=== PATIENT | male | born 1985 | race African-American/Black ===

== ENCOUNTER 2016-10-29 14:21 | Emergency (ER) | payer OTHER ==
[2016-10-29 14:33] VITALS: BP 125/93; PULSE 90; RESP 20; TEMP 98.7
--- NOTE | 2016-10-29 14:50 | ED ---
Skin/Abscess/FB HPI - General Chief complaint: Skin/Abscess/Foreign Body Stated complaint: Boil on leg Time Seen by Provider: 10/29/16 14:29 Source: patient, RN notes reviewed Mode of arrival: ambulatory Limitations: no limitations - History of Present Illness Initial comments: 31-year-old male presents to the emergency department with a chief complaint of abscess to his perineum area. Noticed it yesterday. History of MRSA. He states he was hoping that he could have a drain. Patient states that this time. Patient states there is minimal pain only to punch. Patient denies any fever chills cough or runny nose. Patient states he chronically does have a rash. 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 Patient states for the itching and to follow-up with dermatology. Patient denies any other symptoms at this time. Patient denies any recent fever, chills, shortness of breath, chest pain, back pain, abdominal pain, nausea vomiting, numbness or tingling, dysuria or hematuria, constipation or diarrhea, headaches or visual changes, or any other current symptoms. - Related Data Previous Rx's Medication Instructions Recorded Sulfamethox-Tmp 800-160Mg [Bactrim 2 each PO Q12HR #56 tab 10/29/16 DS 800-160 mg] hydrOXYzine HCL [Atarax] 25 mg PO TID PRN #25 tab 10/29/16 Allergies Allergy/AdvReac Type Severity Reaction Status Date / Time No Known Allergies Allergy Verified 10/29/16 14:29 Review of Systems ROS Statement: Those systems with pertinent positive or pertinent negative responses have been documented in the HPI. ROS Other: All systems not noted in ROS Statement are negative. Past Medical History Past Medical History: No Reported History History of Any Multi-Drug Resistant Organisms: MRSA Date of last positivie culture/infection: 12/10/2014 MDRO Source:: Left leg Past Surgical History: No Surgical Hx Reported Past Psychological History: No Psychological Hx Reported Smoking Status: Current every day smoker Past Alcohol Use History: Occasional Past Drug Use History: Marijuana General Exam Limitations: no limitations General appearance: alert, in no apparent distress Head exam: Present: atraumatic, normocephalic, normal inspection ENT exam: Present: normal exam, mucous membranes moist Neck exam: Present: normal inspection. Absent: tenderness, meningismus, lymphadenopathy Respiratory exam: Present: normal lung sounds bilaterally. Absent: respiratory distress, wheezes, rales, rhonchi, stridor Cardiovascular Exam: Present: regular rate, normal rhythm, normal heart sounds. Absent: systolic murmur, diastolic murmur, rubs, gallop, clicks Neurological exam: Present: alert, oriented X3 Psychiatric exam: Present: normal affect, normal mood Skin exam: Present: warm, dry, intact, rash (Diffuse) Course Vital Signs 10/29/16 14:30 Temperature 98.7 F Pulse Rate 90 Respiratory 20 Rate Blood Pressure 125/93 O2 Sat by Pulse 99 Oximetry Medical Decision Making - Medical Decision Making 31-year-old male presents to the emergency department with complaint of an abscess. This time he did undergo I&D with an 18-gauge needle. We did discuss taking the antibiotics as prescribed. We discussed follow-up with dermatology and return parameters. he will be discharged home. We discussed follow-up with dermatology for his continued rash and care. We'll plan on an antiitch medication. Disposition Clinical Impression: Chronic pruritic rash in adult, Abscess, perineum Disposition: HOME SELF-CARE Condition: Stable Instructions: Abscess (ED) Additional Instructions: Please use medication as discussed. Please follow up with family doctor if symptoms have not improved over the next two days. Please return to the emergency room if your symptoms increase or worsen or for any other concerns. Prescriptions: Sulfamethox-Tmp 800-160Mg [Bactrim DS 800-160 mg] 2 each PO Q12HR #56 tab hydrOXYzine HCL [Atarax] 25 mg PO TID PRN #25 tab PRN Reason: Itching Referrals: Manjeet Yeung MD [STAFF PHYSICIAN] - 1-2 days Time of Disposition: 14:49
== END 2016-10-29 15:01 | disposition home or self-care (01) ==
LOC: EC 14:21
DX: L02.215 Cutaneous abscess of perineum (principal); L29.9 Pruritus, unspecified; F17.200 Nicotine dependence, unspecified, uncomplicated
CPT/HCPCS: 10060; 99282

== ENCOUNTER 2016-11-30 17:02 | Emergency (ER) | payer OTHER ==
[2016-11-30 17:16] VITALS: BP 124/69; PULSE 92; RESP 18; TEMP 97.6
--- NOTE | 2016-11-30 17:30 | ED ---
General Adult HPI - General Chief complaint: Recheck/Abnormal Lab/Rx Stated complaint: Diff breathing Time Seen by Provider: 11/30/16 17:25 Source: patient, RN notes reviewed Mode of arrival: ambulatory Limitations: no limitations - History of Present Illness Initial comments: 31-year-old male presents emergency Department chief complaint heartburn, occasional difficulty swallowing. Patient states that he feels that food does not always go down right away gets stuck just below his ribs. In states that he seems To force it down or drink something extra. Patient states is very is and does not happen all the time. He states that any food or drinks and causes. Patient denies any nausea vomiting. Patient states he did try some Tums 1 tablet no relief. He has not tried any other medications. He does admit to ongoing acid reflux. Denies any shortness breath that time. Denies any sore throat, fever, chills, diarrhea constipation. - Related Data Previous Rx's Medication Instructions Recorded Sulfamethox-Tmp 800-160Mg [Bactrim 2 each PO Q12HR #56 tab 10/29/16 DS 800-160 mg] hydrOXYzine HCL [Atarax] 25 mg PO TID PRN #25 tab 10/29/16 Omeprazole 40 mg PO DAILY #14 capsule. 11/30/16 Allergies Allergy/AdvReac Type Severity Reaction Status Date / Time No Known Allergies Allergy Verified 11/30/16 17:16 Review of Systems ROS Statement: Those systems with pertinent positive or pertinent negative responses have been documented in the HPI. ROS Other: All systems not noted in ROS Statement are negative. Past Medical History Past Medical History: No Reported History History of Any Multi-Drug Resistant Organisms: MRSA Date of last positivie culture/infection: 12/10/2014 MDRO Source:: Left leg Past Surgical History: No Surgical Hx Reported Past Psychological History: No Psychological Hx Reported Smoking Status: Current every day smoker Past Alcohol Use History: Occasional Past Drug Use History: Marijuana General Exam Limitations: no limitations General appearance: alert, in no apparent distress ENT exam: Present: normal exam, normal oropharynx, mucous membranes moist Neck exam: Present: normal inspection. Absent: tenderness, meningismus, lymphadenopathy Respiratory exam: Present: normal lung sounds bilaterally. Absent: respiratory distress, wheezes, rales, rhonchi, stridor Cardiovascular Exam: Present: regular rate, normal rhythm, normal heart sounds. Absent: systolic murmur, diastolic murmur, rubs, gallop, clicks GI/Abdominal exam: Present: soft, tenderness (Minimal tenderness in the epigastric region just inferior to the xiphoid process), normal bowel sounds. Absent: distended, guarding, rebound, rigid Course Vital Signs 11/30/16 17:10 Temperature 97.6 F Pulse Rate 92 Respiratory 18 Rate Blood Pressure 124/69 O2 Sat by Pulse 97 Oximetry Medical Decision Making - Medical Decision Making 31-year-old male presented emergency department for difficulty swallowing, GERD. Patient most likely has esophagitis with acid reflux. Patient was started on omeprazole 40 mg once daily. He'll be placed on a 2 week trial if no improvement I did recommend that he has an EGD. Patient agrees to plan of this time I do not see any evidence of a large hiatal hernia on chest x-ray Disposition Clinical Impression: Esophagitis, GERD (gastroesophageal reflux disease) Disposition: HOME SELF-CARE Condition: Stable Instructions: Gastroesophageal Reflux Disease (ED) Additional Instructions: Please return to the Emergency Department if symptoms worsen or any other concerns. Prescriptions: Omeprazole 40 mg PO DAILY #14 capsule.dr Referrals: None,Stated [Primary Care Provider] - 1-2 days Suzette Atkins MD [STAFF PHYSICIAN] - 1-2 days Time of Disposition: 17:42
--- NOTE | 2016-11-30 17:37 | XR ---
EXAMINATION TYPE: XR chest 2V DATE OF EXAM: 11/30/2016 COMPARISON: NONE HISTORY: Chest pain TECHNIQUE: Frontal and lateral views of the chest are obtained. FINDINGS: Heart and mediastinum are normal. Lungs are clear. Diaphragm is normal. Bony thorax is int act. There are tiny calcified granulomata. IMPRESSION: No cardiopulmonary disease.
== END 2016-11-30 18:12 | disposition home or self-care (01) ==
LOC: EC 17:02
DX: K21.0 Gastro-esophageal reflux disease with esophagitis (principal); R06.00 Dyspnea, unspecified; F17.200 Nicotine dependence, unspecified, uncomplicated
CPT/HCPCS: 71020; 99284

== ENCOUNTER 2017-03-02 12:52 | Observation (INO) | payer OTHER ==
[2017-03-02] MEDS ORDERED: FAMOTIDINE 20 MG/2 ML VIAL IV STA (14:02)
[2017-03-02] MEDS ORDERED: diphenhydrAMINE 50 MG/ML 1 ML VIAL IVP STA (14:02)
[2017-03-02] MEDS ORDERED: methylPREDNISolone SOD SUCCI 125 MG/2 ML VIAL IV STA (14:02)
[2017-03-02] MEDS ORDERED: ONDANSETRON 4 MG/2 ML VIAL IVP STA (14:11)
[2017-03-02] MEDS ORDERED: SODIUM CHLORIDE 0.9% 2,000 ML IV STA (14:11)
[2017-03-02] MEDS ORDERED: MORPHINE SULFATE 4 MG/ML SYRINGE IV STA (14:11)
[2017-03-02] MEDS ORDERED: RX INFO: IV CONTRAST WAS GIVEN 1 EACH MISC MISCELLANE PRN (14:11)
--- NOTE | 2017-03-02 14:17 | ED ---
GI Bleed HPI <Lakhwinder Jimenez - Last Filed: 03/02/17 15:48> - General Source: patient, RN notes reviewed, old records reviewed Mode of arrival: ambulatory Limitations: no limitations <Jenna Patiñoily - Last Filed: 03/02/17 16:00> - General Chief complaint: GI Bleed Stated complaint: Abd Pain/Blood in Stool Time Seen by Provider: 03/02/17 13:59 - History of Present Illness Initial comments: 31-year-old male since emergency Department chief complaint of severe abdominal pain for the past 2 days. He reports that today he had a bowel movement he noticed significant bloody stool. Patient states this is her had symptoms like this before. Denies any nausea or vomiting. Patient just reports diffuse abdominal pain. Patient states that he has had no fever or chills, denies any urinary symptoms. Reports the pain is just in the abdomen and radiating towards the back. Patient later relates that he was treated with Augmentin for some infection that he is unaware of a few weeks ago, and completed the antibiotics over to 3 weeks ago. (Miranda Patiño) - Related Data Home Medications Medication Instructions Recorded Confirmed Azithromycin [Zithromax] 600 mg PO Q7D 03/02/17 03/02/17 Ibuprofen [Motrin] 800 mg PO Q6H PRN 03/02/17 03/02/17 Allergies Allergy/AdvReac Type Severity Reaction Status Date / Time No Known Allergies Allergy Verified 03/02/17 13:23 Review of Systems ROS Other: All systems not noted in ROS Statement are negative. <Lakhwinder Jimenez - Last Filed: 03/02/17 15:48> ROS Other: All systems not noted in ROS Statement are negative. <Miranda Patiño - Last Filed: 03/02/17 16:00> ROS Statement: Those systems with pertinent positive or pertinent negative responses have been documented in the HPI. Past Medical History Past Medical History: No Reported History History of Any Multi-Drug Resistant Organisms: MRSA Date of last positivie culture/infection: 12/10/2014 MDRO Source:: Left leg Past Surgical History: No Surgical Hx Reported Past Psychological History: No Psychological Hx Reported Smoking Status: Current every day smoker Past Alcohol Use History: Occasional Past Drug Use History: Marijuana <Miranda Patiño - Last Filed: 03/02/17 16:00> General Exam <Lakhwinder Jimenez - Last Filed: 03/02/17 15:48> Limitations: no limitations General appearance: alert, in no apparent distress Head exam: Present: atraumatic, normocephalic, normal inspection Eye exam: Present: normal appearance, PERRL, EOMI. Absent: scleral icterus, conjunctival injection, periorbital swelling ENT exam: Present: normal exam, mucous membranes moist Neck exam: Present: normal inspection. Absent: tenderness, meningismus, lymphadenopathy Respiratory exam: Present: normal lung sounds bilaterally. Absent: respiratory distress, wheezes, rales, rhonchi, stridor Cardiovascular Exam: Present: regular rate, normal rhythm, normal heart sounds. Absent: systolic murmur, diastolic murmur, rubs, gallop, clicks GI/Abdominal exam: Present: soft, tenderness (Diffuseabdominal tenderness.) Rectal exam: Present: normal rectal tone, bloody stool, hemorrhoids (Patient does appear to have some external hemorrhoid.) Extremities exam: Present: normal inspection, full ROM, normal capillary refill. Absent: tenderness, pedal edema, joint swelling, calf tenderness Back exam: Present: normal inspection Neurological exam: Present: alert, oriented X3, CN II-XII intact Psychiatric exam: Present: normal affect, normal mood Skin exam: Present: warm, dry, intact, normal color. Absent: rash <Miranda Patiño - Last Filed: 03/02/17 16:00> - General Exam Comments Initial Comments: 31-year-old -[place] male. No acute distress. (Miranda Patiño) Course <Lakhwinder Jimenez - Last Filed: 03/02/17 15:48> <Miranda Patiño - Last Filed: 03/02/17 16:00> Vital Signs 03/02/17 03/02/17 13:04 14:37 Temperature 97.8 F Pulse Rate 109 H 81 Respiratory 16 22 Rate Blood Pressure 130/82 126/72 O2 Sat by Pulse 100 98 Oximetry - Reevaluation(s) Reevaluation #1: 03/02/17 15:48 I did proceed a [id number] evaluation the patient did discuss the findings with him and his . Due to the patient's presentation she will be admitted for evaluation of GI bleeding colitis and serial CBCs. The case was discussed with Dr. Spence. (Lakhwinder Jimenez) Medical Decision Making - Lab Data Result diagrams: 03/02/17 13:25 03/02/17 13:25 <Lakhwinder Jimenez - Last Filed: 03/02/17 15:48> - Lab Data Result diagrams: 03/02/17 13:25 03/02/17 13:25 - Radiology Data Radiology results: report reviewed <HaroonMiranda - Last Filed: 03/02/17 16:00> - Medical Decision Making This is a 31-year-old male presents emergency department with 2 days of some abdominal pain but 1 day of bloody stool. Patient was given IV fluids, pain medication and lab work obtained. Patient's lab work does show significant neutropenia with a white blood cell count of 1.9. Patient also started to have some low platelets at 95,000. Patient chemistries were all within normal limits. Patient's CT abdomen and pelvis was performed and did show some evidence of rectosigmoid colitis. Patient relates that he has never been told that he has had a low blood count before. Denies any previous illnesses. Discussed case with Dr. Jimenez. Like to admit the patient for further evaluation and repeat CBCs. Patient will be started on Levaquin and Flagyl for his colitis. Patient agrees to treatment plan and admission. Patient be on a clear liquid diet. Dr. Louis discussed this case with Dr. Spence. We will also consult GI specialist Dr. Hoffman. (Miranda Patiño) - Lab Data Lab Results 03/02/17 03/02/17 03/02/17 Range/Units 13:25 13:25 13:25 WBC 1.9 L* (3.8-10.6) k/uL RBC 4.12 L (4.30-5.90) m/uL Hgb 13.4 (13.0-17.5) gm/dL Hct 38.2 L (39.0-53.0) % MCV 92.8 (80.0-100.0) fL MCH 32.6 (25.0-35.0) pg MCHC 35.2 (31.0-37.0) g/dL RDW 13.7 (11.5-15.5) % Plt Count 95 L (150-450) k/uL Neutrophils % 73 % Lymphocytes % 11 % Monocytes % 13 % Eosinophils % 1 % Basophils % 1 % Neutrophils # 1.4 (1.3-7.7) k/uL Lymphocytes # 0.2 L (1.0-4.8) k/uL Monocytes # 0.2 (0-1.0) k/uL Eosinophils # 0.0 (0-0.7) k/uL Basophils # 0.0 (0-0.2) k/uL Manual Slide Review Performed Ovalocytes Present PT 10.2 (9.0-12.0) sec INR 1.0 (<1.2) APTT 24.6 (22.0-30.0) sec Sodium 145 (137-145) mmol/L Potassium 4.1 (3.5-5.1) mmol/L Chloride 107 (98-107) mmol/L Carbon Dioxide 25 (22-30) mmol/L Anion Gap 13 mmol/L BUN 9 (9-20) mg/dL Creatinine 0.74 (0.66-1.25) mg/dL Est GFR (MDRD) Af Amer >60 (>60 ml/min/1.73 sqM) Est GFR (MDRD) Non-Af >60 (>60 ml/min/1.73 sqM) Glucose 79 (74-99) mg/dL Plasma Lactic Acid Valente (0.7-2.0) mmol/L Calcium 9.8 (8.4-10.2) mg/dL Total Bilirubin 0.7 (0.2-1.3) mg/dL AST 24 (17-59) U/L ALT 32 (21-72) U/L Alkaline Phosphatase 50 (38-126) U/L Total Protein 9.3 H (6.3-8.2) g/dL Albumin 4.7 (3.5-5.0) g/dL Amylase 98 (30-110) U/L Lipase 58 (23-300) U/L Urine Color Urine Appearance (Clear) Urine pH (5.0-8.0) Ur Specific [place] (1.001-1.035) Urine Protein (Negative) Urine Glucose (UA) (Negative) Urine Ketones (Negative) Urine Blood (Negative) Urine Nitrite (Negative) Urine Bilirubin (Negative) Urine Urobilinogen (<2.0) mg/dL Ur Leukocyte Esterase (Negative) Stool Occult Blood (Negative) Blood Type Blood Type Recheck Antibody Screen Spec Expiration Date 03/02/17 03/02/17 03/02/17 Range/Units 13:25 14:12 15:34 WBC (3.8-10.6) k/uL RBC (4.30-5.90) m/uL Hgb (13.0-17.5) gm/dL Hct (39.0-53.0) % MCV (80.0-100.0) fL MCH (25.0-35.0) pg MCHC (31.0-37.0) g/dL RDW (11.5-15.5) % Plt Count (150-450) k/uL Neutrophils % % Lymphocytes % % Monocytes % % Eosinophils % % Basophils % % Neutrophils # (1.3-7.7) k/uL Lymphocytes # (1.0-4.8) k/uL Monocytes # (0-1.0) k/uL Eosinophils # (0-0.7) k/uL Basophils # (0-0.2) k/uL Manual Slide Review Ovalocytes PT (9.0-12.0) sec INR (<1.2) APTT (22.0-30.0) sec Sodium (137-145) mmol/L Potassium (3.5-5.1) mmol/L Chloride (98-107) mmol/L Carbon Dioxide (22-30) mmol/L Anion Gap mmol/L BUN (9-20) mg/dL Creatinine (0.66-1.25) mg/dL Est GFR (MDRD) Af Amer (>60 ml/min/1.73 sqM) Est GFR (MDRD) Non-Af (>60 ml/min/1.73 sqM) Glucose (74-99) mg/dL Plasma Lactic Acid Valente 0.8 (0.7-2.0) mmol/L Calcium (8.4-10.2) mg/dL Total Bilirubin (0.2-1.3) mg/dL AST (17-59) U/L ALT (21-72) U/L Alkaline Phosphatase (38-126) U/L Total Protein (6.3-8.2) g/dL Albumin (3.5-5.0) g/dL Amylase (30-110) U/L Lipase (23-300) U/L Urine Color Light Yellow Urine Appearance Clear (Clear) Urine pH 6.5 (5.0-8.0) Ur Specific [place] 1.021 (1.001-1.035) Urine Protein Negative (Negative) Urine Glucose (UA) Negative (Negative) Urine Ketones Negative (Negative) Urine Blood Negative (Negative) Urine Nitrite Negative (Negative) Urine Bilirubin Negative (Negative) Urine Urobilinogen <2.0 (<2.0) mg/dL Ur Leukocyte Esterase Negative (Negative) Stool Occult Blood (Negative) Blood Type O Negative Blood Type Recheck No Antibody Screen NEGATIVE Spec Expiration Date 03/05/2017232403/02/17 Range/Units 15:34 WBC (3.8-10.6) k/uL RBC (4.30-5.90) m/uL Hgb (13.0-17.5) gm/dL Hct (39.0-53.0) % MCV (80.0-100.0) fL MCH (25.0-35.0) pg MCHC (31.0-37.0) g/dL RDW (11.5-15.5) % Plt Count (150-450) k/uL Neutrophils % % Lymphocytes % % Monocytes % % Eosinophils % % Basophils % % Neutrophils # (1.3-7.7) k/uL Lymphocytes # (1.0-4.8) k/uL Monocytes # (0-1.0) k/uL Eosinophils # (0-0.7) k/uL Basophils # (0-0.2) k/uL Manual Slide Review Ovalocytes PT (9.0-12.0) sec INR (<1.2) APTT (22.0-30.0) sec Sodium (137-145) mmol/L Potassium (3.5-5.1) mmol/L Chloride (98-107) mmol/L Carbon Dioxide (22-30) mmol/L Anion Gap mmol/L BUN (9-20) mg/dL Creatinine (0.66-1.25) mg/dL Est GFR (MDRD) Af Amer (>60 ml/min/1.73 sqM) Est GFR (MDRD) Non-Af (>60 ml/min/1.73 sqM) Glucose (74-99) mg/dL Plasma Lactic Acid Valente (0.7-2.0) mmol/L Calcium (8.4-10.2) mg/dL Total Bilirubin (0.2-1.3) mg/dL AST (17-59) U/L ALT (21-72) U/L Alkaline Phosphatase (38-126) U/L Total Protein (6.3-8.2) g/dL Albumin (3.5-5.0) g/dL Amylase (30-110) U/L Lipase (23-300) U/L Urine Color Urine Appearance (Clear) Urine pH (5.0-8.0) Ur Specific [place] (1.001-1.035) Urine Protein (Negative) Urine Glucose (UA) (Negative) Urine Ketones (Negative) Urine Blood (Negative) Urine Nitrite (Negative) Urine Bilirubin (Negative) Urine Urobilinogen (<2.0) mg/dL Ur Leukocyte Esterase (Negative) Stool Occult Blood Positive (Negative) Blood Type Blood Type Recheck Antibody Screen Spec Expiration Date - Radiology Data Correlate for possible colitis. Following up as indicated. Some wall thickening present in the rectosigmoid colon is nonspecific. No evidence of bowel instruction. (Miranda Patiño) Disposition <Lakhwinder Jimenez - Last Filed: 03/02/17 15:48> Time of Disposition: 15:49 <Miranda Patiño - Last Filed: 03/02/17 16:00> Clinical Impression: Colitis, Neutropenia, Lower GI bleed Disposition: ADMITTED IP TO THIS HOSP Condition: Stable Referrals: None,Stated [Primary Care Provider] - 1-2 days
[2017-03-02 14:34] LABS: Basophils % (A) 1 %; CH 33.1; CHCM 35.9; Eosinophils % (A) 1 %; HCT 38.2 % (39.0-53.0); HDW 3.07; HGB 13.4 gm/dL (13.0-17.5); Luc # (Auto) 0.03; Luc % (Auto) 2; Lymphocytes # (A) 0.2 k/uL (1.0-4.8); Lymphocytes % (A) 11 %; MCH 32.6 pg (25.0-35.0); MCHC 35.2 g/dL (31.0-37.0); MCV 92.8 fL (80.0-100.0); Mean Platelet Volume 8.7; Monocytes # (A) 0.2 k/uL (0-1.0); Monocytes % (A) 13 %; Neutrophils # (A) 1.4 k/uL (1.3-7.7); Neutrophils % (A) 73 %; RBC 4.12 m/uL (4.30-5.90); RDW 13.7 % (11.5-15.5); WBC (Perox) 1.73
[2017-03-02 14:43] LABS: ALT 32 U/L (21-72); AST 24 U/L (17-59); Alkaline Phosphatase 50 U/L (38-126); Amylase 98 U/L (30-110); Anion Gap 13 mmol/L; Blood Urea Nitrogen 9 mg/dL (9-20); Calcium 9.8 mg/dL (8.4-10.2); Carbon Dioxide 25 mmol/L (22-30); Chloride 107 mmol/L (98-107); Glucose 79 mg/dL (74-99); Non-African American GFR(MDRD) >60 (>60 ml/min/1.73 sqM); Partial Thromboplastin Time 24.6 sec (22.0-30.0); Potassium 4.1 mmol/L (3.5-5.1); Prothrombin Time 10.2 sec (9.0-12.0); Sodium 145 mmol/L (137-145); Total Bilirubin 0.7 mg/dL (0.2-1.3); Total Protein 9.3 g/dL (6.3-8.2); WBC 1.9 k/uL (3.8-10.6)
[2017-03-02 15:03] LABS: Manual Review Performed; Ovalocytes Present
--- NOTE | 2017-03-02 15:28 | CT ---
EXAMINATION TYPE: CT abdomen pelvis w con DATE OF EXAM: 03/02/2017 COMPARISON: NONE HISTORY: Generalized abdominal pain with rectal bleeding today. CT DLP: 509.40 mGycm Automated exposure control for dose reduction was used. TECHNIQUE: Helical acquisition of images from the lung bases through the pelvis have been completed. CONTRAST: Performed without Oral Contrast and with IV Contrast, patient injected with 100 mL of Omnipaque 300. FINDINGS: LUNG BASES: No significant abnormality is appreciated. AORTA: No significant abnormality is appreciated. LIVER/GB: No significant abnormality is appreciated. PANCREAS: No significant abnormality is seen. SPLEEN: No significant abnormality is seen. ADRENALS: No significant abnormality is seen. KIDNEYS: No significant abnormality is seen. REPRODUCTIVE ORGANS: There is a punctate calcification within the prostate BOWEL: Some wall thickening present in the rectosigmoid colon is nonspecific. No evident bowel obstr uction. FREE AIR: No Free Air visible. ASCITES: None visible. PELVIC ADENOPATHY: None visualized. RETROPERITONEAL ADENOPATHY: No Retroperitoneal Adenopathy visible. URINARY BLADDER: No significant abnormality is seen. OSSEOUS STRUCTURES: There is a spinal curvature. IMPRESSION: CORRELATE FOR POSSIBLE COLITIS, FOLLOW-UP INDICATED.
[2017-03-02 15:44] LABS: Appearance,Urine Clear (Clear); Bilirubin,Urine Negative (Negative); Glucose,Urine (UA) Negative (Negative); Ketones,Urine Negative (Negative); Leukocyte Esterase,Urine Negative (Negative); Nitrite,Urine Negative (Negative); PH, Urine 6.5 (5.0-8.0); Protein,Urine Negative (Negative); Specific Gravity,Urine 1.021 (1.001-1.035); UA Billing (MACRO vs. MICRO) CHEM; Urobilinogen,Urine <2.0 mg/dL (<2.0)
[2017-03-02] MEDS ORDERED: NALOXONE 0.4 MG/ML 1 ML VIAL IV PRN (15:49)
[2017-03-02] MEDS ORDERED: metroNIDAZOLE-NS PMX 500 MG in SALINE 1 100ML.BAG IVPB STA (15:57)
[2017-03-02] MEDS ORDERED: LEVOFLOXACIN 750MG-D5W PMX 750 MG in DEXTROSE/WATER 1 150ML.BAG IVPB STA (15:57)
[2017-03-02] MEDS: SODIUM CHLORIDE 0.9% 1,000 ML IV SCH (16:11)
[2017-03-02] MEDS ORDERED: metroNIDAZOLE 500 MG TAB PO ONE (16:15)
[2017-03-02 17:52] VITALS: BMI 22.4
[2017-03-02] MEDS: MORPHINE SULFATE 4 MG/ML SYRINGE IV PRN (18:11)
[2017-03-02] MEDS ORDERED: HYDROmorphone 1 MG/ML 1 ML SYRINGE IVP PRN (18:56)
[2017-03-02] MEDS ORDERED: TEMAZEPAM 15 MG CAP PO PRN (18:57)
[2017-03-02] MEDS ORDERED: ALPRAZolam 0.25 MG TAB PO PRN (18:57)
--- NOTE | 2017-03-02 19:24 | XR ---
EXAMINATION TYPE: XR chest 1V portable DATE OF EXAM: 03/02/2017 COMPARISON: Prior chest x-ray 11/30/2016 HISTORY: Congestive heart failure, chest pain TECHNIQUE: Single frontal view of the chest is obtained. FINDINGS: There is no focal air space opacity, pleural effusion, or pneumothorax seen. The cardiac silhouette size is within normal limits. The osseous structures are intact. IMPRESSION: No acute process.
[2017-03-02] MEDS: ONDANSETRON 4 MG/2 ML VIAL IVP PRN (20:00)
[2017-03-02] MEDS: HYDROcodone/APAP 5-325MG 1 EACH TAB PO PRN (20:00)
[2017-03-02] MEDS ORDERED: diphenhydrAMINE 50 MG/ML 1 ML VIAL IVP PRN (22:02)
[2017-03-02] MEDS ORDERED: diphenhydrAMINE 50 MG/ML 1 ML VIAL ONE (22:08)
[2017-03-03] MEDS ORDERED: metroNIDAZOLE-NS PMX 500 MG in SALINE 1 100ML.BAG IVPB SCH
[2017-03-03] MEDS: ACETAMINOPHEN TAB 325 MG TAB PO PRN (00:13)
[2017-03-03] MEDS: PIPERACILLIN-TAZOBACTAM 3.375 GM in DEXTROSE/WATER 1 50ML.BAG IVPB SCH ×3 (00:55→15:28)
[2017-03-03] MEDS ORDERED: metroNIDAZOLE 500 MG TAB PO SCH (02:00)
[2017-03-03] MEDS: MORPHINE SULFATE 4 MG/ML SYRINGE IV PRN ×3 (02:27→13:25)
[2017-03-03] MEDS: SODIUM CHLORIDE 0.9% 1,000 ML IV SCH ×3 (02:31→21:12)
[2017-03-03 06:52] LABS: Basophils % (A) 1 %; CH 32.8; CHCM 34.8; Eosinophils % (A) 3 %; HCT 30.2 % (39.0-53.0); HDW 3.06; HGB 10.8 gm/dL (13.0-17.5); Luc # (Auto) 0.04; Luc % (Auto) 4; Lymphocytes # (A) 0.3 k/uL (1.0-4.8); Lymphocytes % (A) 26 %; MCH 33.9 pg (25.0-35.0); MCHC 35.8 g/dL (31.0-37.0); MCV 94.7 fL (80.0-100.0); Mean Platelet Volume 8.7; Monocytes # (A) 0.3 k/uL (0-1.0); Monocytes % (A) 24 %; Neutrophils # (A) 0.4 k/uL (1.3-7.7); Neutrophils % (A) 42 %; RBC 3.19 m/uL (4.30-5.90); WBC (Perox) 1.06
[2017-03-03 07:04] LABS: WBC 1.1 k/uL (3.8-10.6)
[2017-03-03 07:16] LABS: Anion Gap 9 mmol/L; Blood Urea Nitrogen 8 mg/dL (9-20); Calcium 8.6 mg/dL (8.4-10.2); Carbon Dioxide 25 mmol/L (22-30); Chloride 109 mmol/L (98-107); Glucose 81 mg/dL (74-99); Non-African American GFR(MDRD) >60 (>60 ml/min/1.73 sqM); Potassium 3.9 mmol/L (3.5-5.1); Sodium 143 mmol/L (137-145)
[2017-03-03] MEDS: PANTOPRAZOLE 40 MG/10 ML VIAL IV SCH (08:08)
[2017-03-03 08:18] LABS: Manual Review Performed
--- NOTE | 2017-03-03 10:21 | HP ---
HISTORY AND PHYSICAL DATE OF ADMISSION: 03/02/2017. CHIEF COMPLAINT: Abdominal pain and gastrointestinal bleed. HISTORY OF PRESENT ILLNESS: This 31-year-old gentleman with a past medical history of MRSA, otherwise no other significant medical surgical issues was not being followed by any primary physician in the outpatient setting. The patient was noted to have abdominal pain which is stated more on the left lower quadrant than right upper quadrant. The patient also had some bloody stools and patient came to [facility] and admitted for further evaluation and treatment. The symptoms are worsening over the last 2 days. After admission, at the ER, patient was found to have WBC 1.9. Hemoglobin is found to be 13.4, platelets were 95 and stool OB was positive. An abdomen and pelvis CT scan was also done that showed evidence of possible colitis with wall thickening in the rectosigmoid and the patient admitted for further evaluation and treatment. There is no history of fever, rigors or chills. No history of headache, loss of conscious or seizures. PAST MEDICAL HISTORY: MRSA. MEDICATIONS: Prior to admission include: 1. Motrin 800 mg q.6h p.r.n. 2. Zithromax 600 mg every 7 days. ALLERGIES: None. FAMILY HISTORY: History of DVT in the family. SOCIAL HISTORY: History of THC and history of smoking. REVIEW OF SYSTEMS: ENT: No diminished hearing or vision. CARDIOVASCULAR: No angina or palpitations. RESPIRATORY: No cough. GI as mentioned earlier. no dysuria. Central nervous system: No numbness or weakness. Allergy/Immunology: No asthma or hayfever. Musculoskeletal: As mentioned earlier. Hematology/Oncology: No history of anemia. Endocrine: No history of diabetes or hypothyroidism. Constitutional: As mentioned earlier. Dermatology: Negative. Rheumatology: Negative. Psychiatric: As mentioned earlier. PHYSICAL EXAM: Patient is alert and oriented times three. The pulse is 74, blood pressure 130/68, respiration 18, temperature 98.9, pulse ox 98% room air. HEENT: Conjunctivae normal. Neck: No jugular venous distention. Cardiovascular: S1, S2 muffled. No S3, no S4. Respiratory: Breath sounds diminished in the bases. No rhonchi. No crackles. ABDOMEN: Soft. Mild diffuse tenderness in the left lower quadrant and right upper quadrant also present. No guarding. No rigidity. No mass palpable. Bowel sounds present. Legs no edema. No swelling. NERVOUS SYSTEM: Higher functions as mentioned earlier. Moves all four limbs. No focal deficits. Lymphatics: No lymph nodes palpable in the neck, axillae or groin. SKIN: No ulcers, rash or bleeding. Joints no active deforming arthropathy. LABS: WBC 1.9, and platelets 95. CT scan reviewed. ASSESSMENT: 1. Acute abdominal pain with gastrointestinal bleed. Possible acute colitis for evaluation. 2. Leukopenia, of undetermined etiology. 3. Thrombocytopenia. 4. History of nicotine dependence. 5. History of Methicillin-resistant Staphylococcus aureus. 6. History of THC. RECOMMENDATIONS AND DISCUSSION: In this 31-year-old gentleman who presented with multiple complex medical issues, we will monitor the patient closely. Continue the current medications. Continue symptomatic treatment. We will initiate broad-spectrum antibiotic empirically. Monitor hemoglobin closely. Gastroenterology evaluation for possible endoscopy. Otherwise, serologies. Guarded prognosis because of multiple complex medical issues. Further recommendations to follow. I would also recommend the patient to follow up with primary physician closely also. Further recommendations to follow. MMODL / IJN: [id number] /
[2017-03-03] MEDS: HYDROcodone/APAP 5-325MG 1 EACH TAB PO PRN (15:27)
[2017-03-03] MEDS ORDERED: LORazepam 2 MG/ML INJ IV PRN (18:41)
[2017-03-03] MEDS ORDERED: LEVOFLOXACIN 500MG-D5W PMX 500 MG in DEXTROSE/WATER 1 100ML.BAG IVPB SCH (20:00)
--- NOTE | 2017-03-03 21:28 | PN ---
PROGRESS NOTE DATE OF SERVICE: 03/03/2017 INTERVAL HISTORY: This 31-year-old gentleman who was admitted with abdominal pain as well as possibly colitis also had GI bleed. Patient also had leukopenia and pancytopenia and followed by oncology also. Gastroenterology has been consulted. No chest pain. No palpitations. No fever. EXAM: Alert, oriented x3. Pulse is 58. Blood pressure 114/77, respiration 18, temperature 97.4, pulse ox 100% on room air. HEENT conjunctivae pale. Oral mucosa moist. Neck is no jugular venous distention. No carotid bruit. No lymph node enlargement. Cardiovascular system: S1, S2. Respiratory: Breath sounds diminished the bases. No rhonchi. No crackles. ABDOMEN: Soft. Mild diffuse tenderness. No guarding. No rigidity. No mass palpable. Legs are no edema. No swelling. Central nervous system: No focal deficits. LAB STUDIES: WBC 1.1. Hemoglobin 10.8, platelets 71. Drug screen is positive opiates and marijuana. ASSESSMENT: 1. Acute abdominal pain with gastrointestinal bleed. Possible acute colitis for evaluation. 2. Leukopenia, undetermined etiology. 3. Pancytopenia. 4. Thrombocytopenia. 5. History of nicotine dependence. 6. History of Methicillin-resistant Staphylococcus aureus. 7. History of THC. RECOMMENDATIONS AND DISCUSSION: Continue current management and continue with monitoring and symptomatic treatment. Otherwise at this time, I will recommend repeat labs. I would recommend Gastroenterology evaluation with endoscopes and as well as Hematology Oncology consultation for evaluation of the pancytopenia also. Further recommendations to follow. MMODL / IJN: [id number] /
[2017-03-04] MEDS: PIPERACILLIN-TAZOBACTAM 3.375 GM in DEXTROSE/WATER 1 50ML.BAG IVPB SCH ×3 (00:09→16:10)
[2017-03-04] MEDS: SODIUM CHLORIDE 0.9% 1,000 ML IV SCH ×3 (00:10→18:21)
[2017-03-04] MEDS: HYDROcodone/APAP 5-325MG 1 EACH TAB PO PRN (07:57)
[2017-03-04] MEDS: ONDANSETRON 4 MG/2 ML VIAL IVP PRN (08:06)
[2017-03-04] MEDS: MORPHINE SULFATE 4 MG/ML SYRINGE IV PRN ×2 (08:24→22:10)
[2017-03-04] MEDS: PANTOPRAZOLE 40 MG/10 ML VIAL IV SCH (09:12)
[2017-03-04 11:20] LABS: Iron 43 ug/dL (49-181)
[2017-03-04 11:30] LABS: % Iron Saturation 20.9 % (20-50); Rheumatoid Factor, Qnt <9 IU/mL (<12); Total Iron Binding Capacity 206 ug/dL (261-462)
[2017-03-04] MEDS ORDERED: PEG 3350-NA SULF,BICARB,CL/KCL 4,000 ML BOTTLE PO ONE (13:41)
[2017-03-04] MEDS ORDERED: diphenhydrAMINE 50 MG CAP PO STA (17:11)
--- NOTE | 2017-03-04 17:22 | P.CONS ---
History of Present Illness - Reason for Consult Consult date: 03/04/17 pancytopenia Requesting physician: Geeta Spence - Chief Complaint abd pain - History of Present Illness Mr. Mcdonald is a very pleasant AA male who denies presented with abd pain. Occult was positive and pt was found to be pancytopenic. Pt denies ever being told his blood was abnormal, he states the only blood her noticed was in his stool, no other bleeding or spontaneous bruising, he has a history of MRSA skin abscesses and rashes, he has been treated with antibiotics and follows with [facility]. Pt denies fevers, weight loss, sweats, he will have episodes where he "can't burp" and maybe indigestion but, denies nausea, vomiting, his abd pain is across the center of his abdomen, started the last week or so, intermittent, he is not sure what makes it better or worse, when the pain was really bad he ended up having large bloody BM and it felt a little better. He denies any other physical c/o. Review of Systems 14 point ROS is as stated in [facility] Past Medical History Past Medical History: No Reported History History of Any Multi-Drug Resistant Organisms: None Reported, MRSA Year Discovered:: 12/10/2014 MDRO Source:: Left leg Past Surgical History: No Surgical Hx Reported Past Psychological History: No Psychological Hx Reported Smoking Status: Current every day smoker Past Alcohol Use History: Occasional Past Drug Use History: Marijuana - Past Family History Father Family Medical History: Deep Vein Thrombosis (DVT) Mother Family Medical History: No Reported History Medications and Allergies Home Medications Medication Instructions Recorded Confirmed Type Azithromycin [Zithromax] 600 mg PO Q7D 03/02/17 03/02/17 History Ibuprofen [Motrin] 800 mg PO Q6H PRN 03/02/17 03/02/17 History Allergies Allergy/AdvReac Type Severity Reaction Status Date / Time levofloxacin [From Levaquin] Allergy Itching Verified 03/02/17 22:04 metronidazole [From Flagyl] Allergy Itching Verified 03/02/17 22:04 Physical Exam Vitals: Vital Signs Temp Pulse Pulse Resp BP Pulse Ox 03/04/17 16:00 55 L 77 16 03/04/17 14:10 97.9 F 77 16 108/70 100 03/04/17 08:00 55 L 67 16 03/04/17 07:00 97.6 F 67 16 128/76 100 03/04/17 00:00 55 L 56 L 16 03/03/17 21:45 97.6 F 52 L 16 127/81 100 Intake and Output 03/04/17 03/04/17 03/04/17 06:59 14:59 22:59 Intake Total 360 360 Output Total 250 250 Balance -250 360 110 Intake: Oral 360 360 Output: Urine 250 250 Other: Voiding Method Toilet Toilet Toilet # Voids 2 2 # Bowel Movements 1 1 - Constitutional General appearance: average body habitus, cooperative, no acute distress - EENT Eyes: anicteric sclerae, EOMI, PERRLA, normal appearance ENT: normal oropharynx - Neck Neck: no lymphadenopathy - Respiratory Respiratory: bilateral: CTA - Cardiovascular Rhythm: regular Heart sounds: normal: S1, S2 Abnormal Heart Sounds: no systolic murmur, no diastolic murmur, no rub, no S3 Gallop, no S4 Gallop, no click, no other leg Peripheral Edema: bilateral: None - Gastrointestinal General gastrointestinal: no absent bowel sounds, no decreased bowel sounds, no distended, no hepatomegaly, no hyperactive bowel sounds, normal bowel sounds, no organomegaly, no rigid, no scaphoid, soft, no splenomegaly, no tenderness, no umbilical hernia, no ventral hernia - Integumentary Integumentary: normal - Neurologic Neurologic: CNII-XII intact - Musculoskeletal Musculoskeletal: strength equal bilaterally - Psychiatric Psychiatric: A&O x's 3, appropriate affect, intact judgment & insight Results CBC & Chem 7: 03/03/17 06:18 03/03/17 06:18 Labs: Abnormal Lab Results - Last 24 Hours (Table) 03/04/17 03/04/17 03/04/17 Range/Units 10:23 10:23 11:25 ESR 25 H (0-15) mm/hr Iron 43 L (49-181) ug/dL TIBC 206 L (261-462) ug/dL C. difficile (EIA) Intrp Positive A (Negative) Microbiology - Last 24 Hours (Table) 03/02/17 14:15 Blood Culture - Preliminary Blood No Growth after [address] scan - abdomen: report reviewed CT scan - pelvis: report reviewed Assessment and Plan (1) Pancytopenia Narrative/Plan: This is new finding for pt. CT AP reviewed, no concerning liver or spleen findings. Pancytopenia/anemia work up ordered. No need for GCSF or transfusion at this time. CBC in AM, will follow up as results are available and make recommendations as appropriate. Status: Acute (2) Lower GI bleed Narrative/Plan: GI consulted for pt presentation and symptoms, likely EGD/colonoscopy will be done. Status: Acute
[2017-03-04 17:35] LABS: Basophils % (A) 0 %; Eosinophils % (A) 2 %; HCT 33.9 % (39.0-53.0); HDW 3.18; HGB 11.9 gm/dL (13.0-17.5); Luc # (Auto) 0.03; Luc % (Auto) 3; Lymphocytes # (A) 0.2 k/uL (1.0-4.8); Lymphocytes % (A) 21 %; MCH 32.3 pg (25.0-35.0); MCHC 35.1 g/dL (31.0-37.0); MCV 92.2 fL (80.0-100.0); Mean Platelet Volume 7.8; Monocytes # (A) 0.2 k/uL (0-1.0); Monocytes % (A) 15 %; Neutrophils # (A) 0.7 k/uL (1.3-7.7); Neutrophils % (A) 59 %; RBC 3.68 m/uL (4.30-5.90); RDW 13.2 % (11.5-15.5); WBC (Perox) 1.09
[2017-03-04 17:38] LABS: WBC 1.1 k/uL (3.8-10.6)
--- NOTE | 2017-03-04 19:04 | P.PN ---
Subjective Date of service 03/04/2017. Personal being dictated for Dr. Spence. Interval history: This a 31-year-old gentleman admitted with abdominal pain, possible colitis with GI bleed, leukopenia, pancytopenia and multiple other medical issues. GI consult in place with recommendations pending. Reports loose liquidy dark stool earlier today, being tested for C. difficile colitis. Tolerating clear liquid diet, asking for diet advancement. WBC 1.1. Complains of sporadic episodes of difficulty burping. Denies nausea or vomiting. denies chest pain, palpitations or increased shortness of breath. Objective - Vital Signs Vital signs: Vital Signs Temp 97.9 F 03/04/17 14:10 Pulse 55 L 03/04/17 16:00 Resp 16 03/04/17 16:00 BP 108/70 03/04/17 14:10 Pulse Ox 100 03/04/17 14:10 Intake & Output 03/03/17 03/04/17 03/04/17 18:59 06:59 18:59 Intake Total 240 1040 720 Output Total 600 500 250 Balance -360 540 470 Intake: Oral 240 1040 720 Output: Urine 600 500 250 Other: Voiding Method Toilet Toilet Toilet # Voids 2 2 2 # Bowel Movements 1 - Exam PHYSICAL EXAM: VITAL SIGNS: [As above] GENERAL: Sitting up in bed, no acute distress HEENT: Conjunctivae pale. eyes normal. NECK: No JVD. No thyroid enlargement. No LNs CARDIOVASCULAR: S1, S2 muffled. No murmur RESPIRATION: Breath sounds diminished in the bases. No rhonchi or crackles. No bronchial breathing. ABDOMEN: Soft, nontender . No guarding. no masses palpable. No ascites, No hepatosplenomegaly.Bowel sounds heard. LEGS: No edema. no swelling PSYCHIATRY: Alert and oriented -3, mood and affect normal. NERVOUS SYSTEM: Cranial N 2-12 grossly normal. Moves all 4 limbs. No focal deficits. No sensory deficit. Skin: no ulcer no rash Joints: No active swelling. No inflammation. - Labs CBC & Chem 7: 03/04/17 17:25 03/03/17 06:18 Labs: Abnormal Lab Results - Last 24 Hours (Table) 03/04/17 03/04/17 03/04/17 Range/Units 10:23 10:23 11:25 WBC (3.8-10.6) k/uL RBC (4.30-5.90) m/uL Hgb (13.0-17.5) gm/dL Hct (39.0-53.0) % Plt Count (150-450) k/uL Neutrophils # (1.3-7.7) k/uL Lymphocytes # (1.0-4.8) k/uL ESR 25 H (0-15) mm/hr Iron 43 L (49-181) ug/dL TIBC 206 L (261-462) ug/dL C. difficile (EIA) Intrp Positive A (Negative) 03/04/17 Range/Units 17:25 WBC 1.1 L* (3.8-10.6) k/uL RBC 3.68 L (4.30-5.90) m/uL Hgb 11.9 L (13.0-17.5) gm/dL Hct 33.9 L (39.0-53.0) % Plt Count 86 L (150-450) k/uL Neutrophils # 0.7 L (1.3-7.7) k/uL Lymphocytes # 0.2 L (1.0-4.8) k/uL ESR (0-15) mm/hr Iron (49-181) ug/dL TIBC (261-462) ug/dL C. difficile (EIA) Intrp (Negative) Microbiology - Last 24 Hours (Table) 03/04/17 11:25 Stool Culture - Preliminary Stool 03/02/17 14:15 Blood Culture - Preliminary Blood No Growth after 48 hours Assessment and Plan Plan: 1. Acute abdominal pain with GI bleed, possible acute colitis for evaluation 2. Dark diarrhea, ruling out C. difficile colitis 3. Pancytopenia 4. THC use Plan: Continue on current medication regime ,monitoring and symptomatic treatment. Oncology/hematology recommendations noted. Close monitoring of CBC with repeat labs ordered for a.m. GI consult in place with recommendations pending, possible endoscopy. Stool culture for C. difficile pending. The impression and plan of care has been dictated as directed. : I performed a H&P examination of this patient and discussed the same with the dictator. I agree with the dictator's note. Any additional findings/opinions/ etc. will be noted.
--- NOTE | 2017-03-04 20:48 | P.CONS ---
History of Present Illness - Reason for Consult Consult date: 03/04/17 - History of Present Illness Patient is a 31-year-old male who presented to the ER with complaint of severe abdominal pain of 2 days duration. He reported noticing blood in his bowel movement earlier on the day of admission. He stateed that he had similar symptoms before. Denies nausea or vomiting. Patient reported that he has had no fever or chills. Denied any urinary symptoms. Reports the abdominal pain radiates towards the back. Had completed an antibiotic over to [address] showed possible colitis. He continued to have diarrhea and bleeding after admission. We are asked to see him for consideration of endoscopy. Review of Systems Constitutional: Denies fever, chills, sweats, weight gain, or loss. HEENT: Negative for migraines, blurred vision or loss, earaches, drainage, tinnitus, oral mucosal lesions, dysphagia, or odynophagia. Cardiac: No chest pains or palpitations. Respiratory: Negative for shortness of breath, hemoptysis, cough, or sputum production. Gastrointestinal: See HPI for pertinent findings. Genitourinary: Negative for hematuria, urgency, frequency, polyuria, dysuria, or penile discharge. Musculoskeletal: Negative for muscle aches, swelling, arthritis, and arthralgias. Neurologic: See PI above. Endocrine: Negative for thyroid problems. Skin: Negative for rash or itching. Psychiatric: Negative history for depression and anxiety Past Medical History Past Medical History: No Reported History History of Any Multi-Drug Resistant Organisms: None Reported, MRSA Year Discovered:: 12/10/2014 MDRO Source:: Left leg Past Surgical History: No Surgical Hx Reported Past Psychological History: No Psychological Hx Reported Smoking Status: Current every day smoker Past Alcohol Use History: Occasional Past Drug Use History: Marijuana - Past Family History Father Family Medical History: Deep Vein Thrombosis (DVT) Mother Family Medical History: No Reported History Medications and Allergies Home Medications Medication Instructions Recorded Confirmed Type Azithromycin [Zithromax] 600 mg PO Q7D 03/02/17 03/02/17 History Ibuprofen [Motrin] 800 mg PO Q6H PRN 03/02/17 03/02/17 History Allergies Allergy/AdvReac Type Severity Reaction Status Date / Time levofloxacin [From Levaquin] Allergy Itching Verified 03/02/17 22:04 metronidazole [From Flagyl] Allergy Itching Verified 03/02/17 22:04 Physical Exam Vitals: Vital Signs Temp Pulse Pulse Resp BP Pulse Ox 03/04/17 08:00 55 L 67 16 03/04/17 07:00 97.6 F 67 16 128/76 100 03/04/17 00:00 55 L 56 L 16 03/03/17 21:45 97.6 F 52 L 16 127/81 100 03/03/17 15:19 53 L 16 03/03/17 15:00 97.5 F L 58 L 18 114/76 100 Intake and Output 03/03/17 03/04/17 03/04/17 22:59 06:59 14:59 Intake Total 1040 360 Output Total 250 250 Balance 790 -250 360 Intake: Oral 1040 360 Output: Urine 250 250 Other: Voiding Method Toilet Toilet Toilet # Voids 3 2 General appearance: The patient is alert, oriented, in no acute distress. HET: Head is normocephalic and atraumatic. Pupils are equal and reactive. Sclerae anicteric. Oropharynx is clear without lesions. Neck: Supple without lymphadenopathy. Trachea midline. Heart: No abnormal sounds murmurs or friction rubs. Lungs: Basal crackles, no wheezes are heard. Abdomen: Soft, bowel sounds present. No peritoneal signs. No palpable organomegaly or masses. Extremities: Normal skin color and turgor. No cyanosis, rash, ulceration or clubbing. No edema. Radial and pedal pulses are 2/4 bilaterally. Neurological: No focal deficits. Strength and sensation are grossly intact. Results CBC & Chem 7: 03/04/17 17:25 03/03/17 06:18 Labs: Abnormal Lab Results - Last 24 Hours (Table) 03/03/17 03/04/17 03/04/17 Range/Units 13:00 10:23 10:23 ESR 25 H (0-15) mm/hr Iron 43 L (49-181) ug/dL TIBC 206 L (261-462) ug/dL Urine Opiates Screen Detected H (NotDetected) U Marijuana (THC) Screen Detected H (NotDetected) Microbiology - Last 24 Hours (Table) 03/02/17 14:15 Blood Culture - Preliminary Blood No Growth after 24 hours Assessment and Plan Plan: 31-year old male with abdominal pain, altered bowel habits, bleeding and abnormal CT. As per my discussion with Dr Spence, will proceed with colonoscopy tomorrow.
[2017-03-05] MEDS: PIPERACILLIN-TAZOBACTAM 3.375 GM in DEXTROSE/WATER 1 50ML.BAG IVPB SCH ×2 (00:34→07:45)
[2017-03-05] MEDS: VANCOMYCIN ORAL SOLUTION 250 MG/5 ML BOTTLE PO SCH ×5 (00:34→23:31)
[2017-03-05] MEDS: CHERRY FLAVOR 60 ML BOTTLE PO SCH ×5 (00:34→23:31)
[2017-03-05] MEDS: SODIUM CHLORIDE 0.9% 1,000 ML IV SCH ×3 (00:42→22:39)
[2017-03-05] MEDS: MORPHINE SULFATE 4 MG/ML SYRINGE IV PRN ×4 (05:55→22:09)
[2017-03-05] MEDS: PANTOPRAZOLE 40 MG/10 ML VIAL IV SCH (07:45)
[2017-03-05] MEDS ORDERED: FILGRASTIM-SNDZ 480 MCG/0.8 ML SYRINGE SQ SCH (09:00)
[2017-03-05] MEDS: ACETAMINOPHEN TAB 325 MG TAB PO PRN ×2 (11:12→23:34)
[2017-03-05 14:19] LABS: Free Kappa Lt Chain Qnt, Serum 7.98 mg/dL (0.33-1.94)
[2017-03-05 15:45] VITALS: PULSE 55
[2017-03-05] MEDS: ONDANSETRON 4 MG/2 ML VIAL IVP PRN ×2 (17:53→22:20)
[2017-03-05 22:26] VITALS: RESP 16
--- NOTE | 2017-03-05 22:55 | P.PN ---
Subjective The patient is a 31-year-old male who presented to the ER with complaint of severe abdominal pain of 2 days duration. He reported noticing blood in his bowel movement earlier on the day of admission. He stated that he had similar symptoms before. Denied nausea or vomiting. Patient reported that he has had no fever or chills. Denied any urinary symptoms. Reported the abdominal pain radiates towards the back. Had completed an antibiotic course over [address] showed possible colitis. He continued to have diarrhea and bleeding after admission and I scheduled him for colonoscopy today but did not take his prep. The patient stool studies this morning returned positive for C. difficile toxin. Vancomycin has been admitted. His diarrhea is improving, and he is not seeing blood. No abdominal pain, nausea or vomiting. Objective - Vital Signs Vital signs: Vital Signs Temp 97.4 F L 03/05/17 15:10 Pulse 55 L 03/05/17 15:10 Resp 14 03/05/17 15:10 BP 124/74 03/05/17 15:10 Pulse Ox 100 03/05/17 15:10 Intake & Output 03/05/17 03/05/17 03/06/17 06:59 18:59 06:59 Intake Total 2100 Balance 2100 Intake: Intake, IV Titration 2100 Amount Piperacillin-Tazobactam 3 100 .375 gm In Dextrose/Water 1 50ml.bag @ 12.5 mls/hr IVPB Q8HR [facility] Rx#: [id number] Sodium Chloride 0.9% 1, 2000 000 ml @ 120 mls/hr IV . Q8H20M [facility] Rx#:[id number] Other: Voiding Method Toilet Bedside Commode # Voids 2 2 - Exam General appearance: The patient is alert, oriented, in no acute distress. HET: Head is normocephalic and atraumatic. Pupils are equal and reactive. Sclerae anicteric. Oropharynx is clear without lesions. Neck: Supple without lymphadenopathy. Trachea midline. Heart: No abnormal sounds murmurs or friction rubs. Lungs: Basal crackles, no wheezes are heard. Abdomen: Soft, bowel sounds present. No peritoneal signs. No palpable organomegaly or masses. Extremities: Normal skin color and turgor. No cyanosis, rash, ulceration or clubbing. No edema. Radial and pedal pulses are 2/4 bilaterally. Neurological: No focal deficits. Strength and sensation are grossly intact. - Labs CBC & Chem 7: 03/04/17 17:25 03/03/17 06:18 Labs: Abnormal Lab Results - Last 24 Hours (Table) 03/04/17 Range/Units 10:23 Ferritin 479.6 H (22.0-322.0) ng/mL Free [place] LC, Quant 7.98 H (0.33-1.94) mg/dL Microbiology - Last 24 Hours (Table) 03/02/17 14:15 Blood Culture - Preliminary Blood No Growth after 72 hours 03/04/17 11:25 Stool for WBCs - Final Stool 03/04/17 11:25 Stool Culture - Preliminary Stool Assessment and Plan Plan: 31-year old male with abdominal pain, altered bowel habits, bleeding and abnormal CT on the basis of C. difficile colitis. He seems to be responding to current regimen. Will continue for a total course of 14 days to finish after discharge. I will discuss with you and continue to follow with you with interest.
[2017-03-06] MEDS: SODIUM CHLORIDE 0.9% 1,000 ML IV SCH ×2 (01:58→10:07)
[2017-03-06] MEDS: VANCOMYCIN ORAL SOLUTION 250 MG/5 ML BOTTLE PO SCH ×2 (05:50→12:31)
[2017-03-06] MEDS: CHERRY FLAVOR 60 ML BOTTLE PO SCH ×2 (05:50→12:31)
[2017-03-06] MEDS: MORPHINE SULFATE 4 MG/ML SYRINGE IV PRN (07:33)
[2017-03-06 08:06] LABS: Basophils % (A) 0 %; CHCM 35.4; Eosinophils % (A) 0 %; HCT 34.8 % (39.0-53.0); HDW 3.29; HGB 12.4 gm/dL (13.0-17.5); Luc # (Auto) 0.09; Luc % (Auto) 1; Lymphocytes # (A) 0.3 k/uL (1.0-4.8); Lymphocytes % (A) 2 %; MCH 33.5 pg (25.0-35.0); MCHC 35.6 g/dL (31.0-37.0); Mean Platelet Volume 8.5; Monocytes # (A) 0.3 k/uL (0-1.0); Monocytes % (A) 3 %; Neutrophils % (A) 94 %; RBC 3.71 m/uL (4.30-5.90); RDW 13.9 % (11.5-15.5); WBC 10.7 k/uL (3.8-10.6); WBC (Perox) 11.36
[2017-03-06 08:08] VITALS: BP 129/74; TEMP 97.4
[2017-03-06 09:31] LABS: Basophils % (A) 0 %; CH 33.1; CHCM 35.2; Eosinophils % (A) 0 %; HCT 34.4 % (39.0-53.0); HDW 3.23; HGB 11.9 gm/dL (13.0-17.5); Luc # (Auto) 0.04; Luc % (Auto) 0; Lymphocytes # (A) 0.3 k/uL (1.0-4.8); Lymphocytes % (A) 3 %; MCH 32.8 pg (25.0-35.0); MCHC 34.7 g/dL (31.0-37.0); MCV 94.5 fL (80.0-100.0); Mean Platelet Volume 8.3; Monocytes # (A) 0.3 k/uL (0-1.0); Monocytes % (A) 3 %; Neutrophils # (A) 9.2 k/uL (1.3-7.7); Neutrophils % (A) 93 %; RBC 3.64 m/uL (4.30-5.90); WBC 9.8 k/uL (3.8-10.6); WBC (Perox) 9.55
[2017-03-06] MEDS: PANTOPRAZOLE 40 MG/10 ML VIAL IV SCH (09:55)
--- NOTE | 2017-03-06 11:40 | P.PN ---
Subjective Principal diagnosis: Clostridium difficile colitis Receiving antibiotics for cluster" colitis. No rectal bleeding. Mild right- sided abdominal discomfort but improved. Loose stools. Afebrile. Anticipating discharge. Objective - Vital Signs Vital signs: Vital Signs Temp 97.4 F L 03/06/17 07:00 Pulse 55 L 03/06/17 07:38 Resp 16 03/06/17 07:38 BP 129/74 03/06/17 07:00 Pulse Ox 100 03/06/17 07:00 Intake & Output 03/05/17 03/06/17 03/06/17 18:59 06:59 18:59 Intake Total 2320 240 Balance 2320 240 Intake: IV 1080 Sodium Chloride 0.9% 1, 1080 000 ml @ 120 mls/hr IV . Q8H20M [facility] Rx#:[id number] Oral 1240 240 Other: Voiding Method Bedside Commode Toilet Toilet # Voids 2 1 2 # Bowel Movements 2 - Exam General appearance: The patient is alert, oriented, in no acute distress. HET: Head is normocephalic and atraumatic. Pupils are equal and reactive. Oropharynx is clear without lesions. Neck: Supple without lymphadenopathy. Trachea midline. Heart: S1 S2. Regular rate and rhythm. Lungs: No crackles or wheezes are heard. Abdomen: Soft, very mild right mid quadrant tenderness, nondistended with bowel sounds. No peritoneal signs. No palpable organomegaly or masses. Extremities: Normal skin color and turgor. No cyanosis, rash, ulceration, clubbing, or edema. Radial and pedal pulses are 2/4 bilaterally. Neurological: No focal deficits. Strength and sensation are grossly intact. - Labs CBC & Chem 7: 03/06/17 09:00 03/03/17 06:18 Labs: Abnormal Lab Results - Last 24 Hours (Table) 03/04/17 03/06/17 03/06/17 Range/Units 10:23 07:39 09:00 WBC 10.7 H (3.8-10.6) k/uL RBC 3.71 L 3.64 L (4.30-5.90) m/uL Hgb 12.4 L 11.9 L (13.0-17.5) gm/dL Hct 34.8 L 34.4 L (39.0-53.0) % Plt Count 74 L 72 L (150-450) k/uL Neutrophils # 10.0 H 9.2 H (1.3-7.7) k/uL Lymphocytes # 0.3 L 0.3 L (1.0-4.8) k/uL Albumin (PEP) 3.38 L (3.80-4.90) g/dL Gamma Globulins 1.66 H (0.70-1.50) g/dL Free [place] LC, Quant 7.98 H (0.33-1.94) mg/dL Microbiology - Last 24 Hours (Table) 03/02/17 14:15 Blood Culture - Preliminary Blood No Growth after 72 hours 03/04/17 11:25 Stool for WBCs - Final Stool Assessment and Plan (1) Clostridium difficile colitis Status: Acute (2) Neutropenia Status: Acute (3) Pancytopenia Status: Acute Plan: 1. Discharge per medicine and hematology. Return to office in 10-14 days reevaluation and discussion of outpatient endoscopy. 14 days of antibiotic therapy recommended for Clostridium difficile colitis. 2. Hematology following closely. Assessment and plan a care discussed with Dr. Singh
[2017-03-06 15:58] LABS: ANA w/Reflex to Titer NEGATIVE (NEGATIVE)
[2017-03-07 07:05] LABS: Methylmalonic Acid <0.10 umol/L (<0.40)
--- NOTE | 2017-03-07 16:24 | P.PN ---
Subjective Personal being dictated for Dr. Soto 03/04 Interval history: This a 31-year-old gentleman admitted with abdominal pain, possible colitis with GI bleed, leukopenia, pancytopenia and multiple other medical issues. GI consult in place with recommendations pending. Reports loose liquidy dark stool earlier today, being tested for C. difficile colitis. Tolerating clear liquid diet, asking for diet advancement. WBC 1.1. Complains of sporadic episodes of difficulty burping. Denies nausea or vomiting. denies chest pain, palpitations or increased shortness of breath. 03/05/2017 Diarrhea improving, tested positive for C. difficile colitis. No bleeding. No dark stools,no melena. Endoscopy canceled as patient now presenting with C. difficile colitis. Maintained on oral vancomycin. Afebrile. Denies abdominal pain. Denies chest pain, palpitations or increasing shortness of breath. Objective - Vital Signs Vital signs: Vital Signs Temp 97.4 F L 03/05/17 15:10 Pulse 55 L 03/05/17 15:10 Resp 14 03/05/17 15:10 BP 124/74 03/05/17 15:10 Pulse Ox 100 03/05/17 15:10 Intake & Output 03/04/17 03/05/17 03/05/17 18:59 06:59 18:59 Intake Total 720 2100 Output Total 250 Balance 470 2100 Intake: Intake, IV Titration 2100 Amount Piperacillin-Tazobactam 3 100 .375 gm In Dextrose/Water 1 50ml.bag @ 12.5 mls/hr IVPB Q8HR [facility] Rx#: [id number] Sodium Chloride 0.9% 1, 2000 000 ml @ 120 mls/hr IV . Q8H20M [facility] Rx#:[id number] Oral 720 Output: Urine 250 Other: Voiding Method Toilet Toilet Bedside Commode # Voids 2 2 2 # Bowel Movements 1 - Exam PHYSICAL EXAM: VITAL SIGNS: [As above] GENERAL: Sitting up in chair, no acute distress HEENT: Conjunctivae pale. eyes normal. NECK: No JVD. No thyroid enlargement. No LNs CARDIOVASCULAR: S1, S2 muffled. No murmur RESPIRATION: Breath sounds diminished in the bases. No rhonchi or crackles. ABDOMEN: Soft, nontender . No guarding. no masses palpable. No ascites.Bowel sounds heard. LEGS: No edema. no swelling PSYCHIATRY: Alert and oriented -3, mood and affect normal. NERVOUS SYSTEM: Cranial N 2-12 grossly normal. Moves all 4 limbs. No focal deficits. No sensory deficit. Skin: no ulcer no rash Joints: No active swelling. No inflammation. - Labs CBC & Chem 7: 03/06/17 09:00 03/03/17 06:18 Labs: Abnormal Lab Results - Last 24 Hours (Table) 03/04/17 03/04/17 Range/Units 10:23 17:25 WBC 1.1 L* (3.8-10.6) k/uL RBC 3.68 L (4.30-5.90) m/uL Hgb 11.9 L (13.0-17.5) gm/dL Hct 33.9 L (39.0-53.0) % Plt Count 86 L (150-450) k/uL Neutrophils # 0.7 L (1.3-7.7) k/uL Lymphocytes # 0.2 L (1.0-4.8) k/uL Ferritin 479.6 H (22.0-322.0) ng/mL Free [place] LC, Quant 7.98 H (0.33-1.94) mg/dL Microbiology - Last 24 Hours (Table) 03/04/17 11:25 Stool for WBCs - Final Stool 03/04/17 11:25 Stool Culture - Preliminary Stool 03/02/17 14:15 Blood Culture - Preliminary Blood No Growth after 48 hours Assessment and Plan Plan: 1. Acute abdominal pain with GI bleed, positive acute C difficile colitis. 3. Pancytopenia 4. THC use Plan: Continue on current medication regime ,monitoring and symptomatic treatment. Maintain oral vancomycin, gentle IV fluid hydration. Close monitoring of CBC, electrolytes,WBC with Repeat labs in a.m. diet advanced to low-residue. further recommendations to follow The impression and plan of care has been dictated as directed. : I performed a H&P examination of this patient and discussed the same with the dictator. I agree with the dictator's note. Any additional findings/opinions/ etc. will be noted.
--- NOTE | 2017-03-07 16:35 | P.DS ---
Providers Date of admission: 03/02/17 15:47 Expected date of discharge: 03/06/17 Attending physician: Geeta Soto Consults: 03/03/17 11:57 Consult Physician Routine Consulting Provider: Gaurav Lundy Consult Reason/Comments: pancytopenia Do you want consulting provider notified?: Yes Dr. Singh,GI Primary care physician: Stated None Dr. Jeremie Benavides, [facility] Course: Final diagnoses 1. acute C difficile colitis. 2. Pancytopenia. Leukopenia normalized with antibiotic treatment. 3. THC use Hospital course:This is a 31-year-old gentleman admitted with abdominal pain, possible colitis with GI bleed, leukopenia, pancytopenia and multiple other medical issues. Evaluated by hematology, GI .Tested positive for C. difficile colitis. Maintained on oral vancomycin, IV fluids, low residue diet. Leukopenia resolved. No further bleeding reported. Dark stools subsided. Significant clinical improvement. Patient has been cleared by all consults for discharge. Patient is being discharged home in a stable condition with guarded prognosis. The impression and plan of care has been dictated as directed as a scribe. : I performed a H&P examination of this patient and discussed the same with the dictator. I agree with the dictator's note. Any additional findings/opinions/ etc. will be noted. Patient Condition at Discharge: Stable Plan - Discharge Summary New Discharge Prescriptions: New Acetaminophen Tab [Tylenol] 650 mg PO Q6HR PRN tab PRN Reason: Mild Pain Or Fever > 100.5 Omeprazole [PriLOSEC] 20 mg PO AC-BID #20 cap Vancomycin Oral Solution 250 mg PO Q6HR #200 ml Discontinued Ibuprofen [Motrin] 800 mg PO Q6H PRN PRN Reason: Pain Azithromycin [Zithromax] 600 mg PO Q7D Discharge Medication List Acetaminophen Tab [Tylenol] 650 mg PO Q6HR PRN tab 03/06/17 [Rx] Omeprazole [PriLOSEC] 20 mg PO AC-BID #20 cap 03/06/17 [Rx] Vancomycin Oral Solution 250 mg PO Q6HR #200 ml 03/06/17 [Rx] Follow up Appointment(s)/Referral(s): Dr. Vincenzo Benavides [facility] [Other] - 1 Week (patient to make own appt) Gaurav Lundy MD [STAFF PHYSICIAN] - As Needed (referral back if if persistent pancytopenia) Dallas Singh MD [STAFF PHYSICIAN] - 2 Weeks (office doesnt take patients insurance) Ambulatory/Diagnostic Orders: Complete Blood Count w/diff [LAB.AMB] Time Frame: 3 Days, Location: Determined By Patient Patient Instructions/Handouts: Ulcerative Colitis (DC), Ulcerative Colitis (GEN ), Neutropenia (DC), Neutropenia (GEN) Activity/Diet/Wound Care/Special Instructions: Pending final dc rec. from Hematology. Low residue Diet ACtivity: limited Till F/U Discharge Disposition: HOME SELF-CARE
[2017-03-13 08:22] LABS: HIV-1/HIV-2 Ab Screen Confirm REACTIVE; HIV1D REACTIVE; HIV2D NONREAC
== END 2017-03-06 13:20 | disposition home or self-care (01) ==
LOC: EC 12:52 → 5MS5E 15:47 → INTOOBSV 15:47
PROVIDERS: ADMIT Hospitalist; ATTEND Hospitalist
DX: A04.7 Enterocolitis due to Clostridium difficile (principal); D70.9 Neutropenia, unspecified; F17.200 Nicotine dependence, unspecified, uncomplicated; F12.90 Cannabis use, unspecified, uncomplicated; Z79.899 Other long term (current) drug therapy; Z83.2 Family history of diseases of the blood and blood-forming organs and certain disorders involving the immune mechanism; Z86.14 Personal history of Methicillin resistant Staphylococcus aureus infection; Z88.3 Allergy status to other anti-infective agents; Z88.8 Allergy status to other drugs, medicaments and biological substances; D69.6 Thrombocytopenia, unspecified; Z79.2 Long term (current) use of antibiotics
CPT/HCPCS: 96376 ×5; 96361 ×4; 96365; 96366 ×4; 96367; 96372; 96375 ×3; 96374; 99285; 36415; 86900; 86901; 83921; 82747; 80053; 80048; 85652; 82728; 82150; 83540; 83550; 83605; 83690; 85025 ×4; 85610; 85730; 86850; 86431; 82272; 81003; 87040; 87324; 87389; 82784 ×3; 84165; 86038; 80306; 87045; 89055; 87046; 87390; 86334; 83883; 71010; 74177; G0378 ×5; J2060; J2270 ×5; J1200; J2405 ×3; J1956; J2543 ×3; Q9967; C9113 ×4; Q5101

== ENCOUNTER 2018-10-24 03:09 | Emergency (ER) | payer OTHER ==
[2018-10-24 03:22] VITALS: BP 125/85; PULSE 81; TEMP 98.5
[2018-10-24 03:28] VITALS: RESP 17
--- NOTE | 2018-10-24 03:49 | ED ---
URI HPI - General Chief Complaint: Upper Respiratory Infection Stated Complaint: cough Time Seen by Provider: 10/24/18 03:33 Source: patient Mode of arrival: ambulatory Limitations: no limitations - History of Present Illness Initial Comments: Tyler is a 33-year-old male who presents the emergency department this morning for evaluation of nasal congestion, runny nose, scratchy throat and nonproductive cough. Patient reports he was in his usual state of health throughout the day yesterday, prior to going to bed he did note that he had some scratchy throat. He reports that he slept for a few hours and woke feeling significant pressure in his sinuses and scratchiness in his throat he took a single Motrin 800 and him to the ER for evaluation. Patient denies any associated fevers, nausea, vomiting, productive cough. Patient isn't every day tobacco and marijuana smoker. - Related Data Previous Rx's Medication Instructions Recorded Acetaminophen Tab [Tylenol] 650 mg PO Q6HR PRN tab 03/06/17 Omeprazole [PriLOSEC] 20 mg PO AC-BID #20 cap 03/06/17 Vancomycin Oral Solution 250 mg PO Q6HR #200 ml 03/06/17 Cetirizine HCl [Zyrtec] 10 mg PO DAILY #30 tab 10/24/18 Fluticasone Nasal [place] [Flonase 2 spr EA NOSTRIL DAILY #1 bottle 10/24/18 Nasal [place]] Ibuprofen [Motrin] 600 mg PO Q6HR PRN #30 tab 10/24/18 Allergies Allergy/AdvReac Type Severity Reaction Status Date / Time levofloxacin [From Levaquin] Allergy Itching Verified 10/24/18 03:23 metronidazole [From Flagyl] Allergy Itching Verified 10/24/18 03:23 Review of Systems ROS Statement: Those systems with pertinent positive or pertinent negative responses have been documented in the HPI. ROS Other: All systems not noted in ROS Statement are negative. Past Medical History Past Medical History: No Reported History History of Any Multi-Drug Resistant Organisms: C-DIFF, MRSA Date of last positivie culture/infection: 12/10/2014 MDRO Source:: Left leg Past Surgical History: No Surgical Hx Reported Past Psychological History: No Psychological Hx Reported Smoking Status: Current every day smoker Past Alcohol Use History: Occasional Past Drug Use History: Marijuana - Past Family History Father Family Medical History: Deep Vein Thrombosis (DVT) Mother Family Medical History: No Reported History General Exam - General Exam Comments Initial Comments: Physical Exam GENERAL: Patient is well-developed and well-nourished. Patient is nontoxic and well-hydrated and is in no distress. Patient smells strongly of marijuana HENT: Normocephalic, Atraumatic. Left TM is clear right TM is bulging and opacified but there is no erythema, this is likely just fluid buildup mist or percussion of the maxillary and frontal sinuses no. 1 drainage noted from the nares post nasal drip noted, no posterior oropharyngeal erythema or exudate EYES: PERRL, EOMI PULMONARY: Unlabored respirations. No audible rales rhonchi or wheezing was noted. CARDIOVASCULAR: There is a regular rate and rhythm without any murmurs gallops or rubs. ABDOMEN: Soft and nontender with normal bowel sounds. SKIN: Skin is clear with no lesions or rashes and otherwise unremarkable. : Deferred NEUROLOGIC: Patient is alert and oriented x3. Moving all extremities spontaneously MUSCULOSKELETAL: Normal extremities with adequate strength and full range of motion. No lower extremity swelling or edema. No calf tenderness. PSYCHIATRIC: Normal psychiatric evaluation. Limitations: no limitations Course Vital Signs 10/24/18 10/24/18 03:20 03:26 Temperature 98.5 F Pulse Rate 81 Respiratory 18 17 Rate Blood Pressure 125/85 O2 Sat by Pulse 98 Oximetry Medical Decision Making - Medical Decision Making The patient was seen and evaluated, history is obtained from patient excited patient appears to be suffering from a viral URI in addition he is having nasal congestion and pressure I will treat for seasonal ALLERGIES, patient will be given a nasal spray, Zyrtec and Motrin, supportive care was discussed the importance of oral rehydration therapy was discussed by offered the patient a work note so he could rest today as it is 4 AM and he is in the emergency department however he states he has that he often doesn't need a work note today. All questions pertaining care were answered return parameters discussed patient discharged home in stable condition. Disposition Clinical Impression: Common cold Disposition: HOME SELF-CARE Condition: Stable Instructions (If sedation given, give patient instructions): Upper Respiratory Infection (ED) Prescriptions: Fluticasone Nasal [place] [Flonase Nasal [place]] 2 spr EA NOSTRIL DAILY #1 bottle Ibuprofen [Motrin] 600 mg PO Q6HR PRN #30 tab PRN Reason: Fever Cetirizine HCl [Zyrtec] 10 mg PO DAILY #30 tab Is patient prescribed a controlled substance at d/c from ED?: No Referrals: None,Stated [Primary Care Provider] - 1-2 days
== END 2018-10-24 04:01 | disposition home or self-care (01) ==
LOC: EC 03:09
DX: J00 Acute nasopharyngitis [common cold] (principal); H73.891 Other specified disorders of tympanic membrane, right ear; Z91.048 Other nonmedicinal substance allergy status; F17.200 Nicotine dependence, unspecified, uncomplicated; Z88.1 Allergy status to other antibiotic agents; Z86.14 Personal history of Methicillin resistant Staphylococcus aureus infection
CPT/HCPCS: 99283

== ENCOUNTER 2019-07-14 21:57 | Emergency (ER) | payer OTHER ==
[2019-07-14] MEDS ORDERED: KETOROLAC 60 MG/2 ML VIAL IM STA (22:11)
[2019-07-14] MEDS ORDERED: ACETAMINOPHEN TAB 325 MG TAB PO STA (22:11)
--- NOTE | 2019-07-14 22:13 | ED ---
URI HPI - General Chief Complaint: Upper Respiratory Infection Stated Complaint: Headache, body aches Time Seen by Provider: 07/14/19 22:02 Source: patient, RN notes reviewed Mode of arrival: ambulatory Limitations: no limitations - History of Present Illness Initial Comments: This a 33-year-old male presents emergency Department chief complaint of fever cough congestion body aches. Patient has been like this for last 4 days. Denies any neck pain or neck stiffness. Denies any nausea vomiting diarrhea constipation. He has not taken any recent Tylenol Motrin. Patient does admit that he is a daily smoker. Patient denies any sick contacts denies ear pain or sore throat no difficulty swallowing. - Related Data Previous Rx's Medication Instructions Recorded Acetaminophen Tab [Tylenol] 650 mg PO Q6HR PRN tab 03/06/17 Omeprazole [PriLOSEC] 20 mg PO AC-BID #20 cap 03/06/17 Vancomycin Oral Solution 250 mg PO Q6HR #200 ml 03/06/17 Cetirizine HCl [Zyrtec] 10 mg PO DAILY #30 tab 10/24/18 Fluticasone Nasal [place] [Flonase 2 spr EA NOSTRIL DAILY #1 bottle 10/24/18 Nasal [place]] Ibuprofen [Motrin] 600 mg PO Q6HR PRN #30 tab 10/24/18 Allergies Allergy/AdvReac Type Severity Reaction Status Date / Time levofloxacin [From Levaquin] Allergy Itching Verified 07/14/19 22:01 metronidazole [From Flagyl] Allergy Itching Verified 07/14/19 22:01 Review of Systems ROS Statement: Those systems with pertinent positive or pertinent negative responses have been documented in the HPI. ROS Other: All systems not noted in ROS Statement are negative. Past Medical History Past Medical History: No Reported History History of Any Multi-Drug Resistant Organisms: C-DIFF, MRSA Date of last positivie culture/infection: 12/10/2014 MDRO Source:: Left leg Past Surgical History: No Surgical Hx Reported Past Psychological History: No Psychological Hx Reported Smoking Status: Current every day smoker Past Alcohol Use History: Occasional Past Drug Use History: Marijuana - Past Family History Father Family Medical History: Deep Vein Thrombosis (DVT) Mother Family Medical History: No Reported History General Exam Limitations: no limitations General appearance: alert, in no apparent distress Head exam: Present: atraumatic, normocephalic, normal inspection Eye exam: Present: normal appearance, PERRL, EOMI. Absent: scleral icterus, conjunctival injection, periorbital swelling ENT exam: Present: normal exam, normal oropharynx, mucous membranes moist, TM's normal bilaterally Neck exam: Present: normal inspection, full ROM. Absent: tenderness, meningismus, lymphadenopathy Respiratory exam: Present: normal lung sounds bilaterally. Absent: respiratory distress, wheezes, rales, rhonchi, stridor Cardiovascular Exam: Present: regular rate, normal rhythm, normal heart sounds. Absent: systolic murmur, diastolic murmur, rubs, gallop, clicks GI/Abdominal exam: Present: soft, normal bowel sounds. Absent: distended, tenderness, guarding, rebound, rigid Back exam: Absent: CVA tenderness (R), CVA tenderness (L) Neurological exam: Present: alert, oriented X3, CN II-XII intact Skin exam: Present: warm, dry, intact, normal color. Absent: rash Course Vital Signs 07/14/19 21:59 Temperature 100.1 F H Pulse Rate 77 Respiratory 20 Rate Blood Pressure 132/82 O2 Sat by Pulse 97 Oximetry Medical Decision Making - Medical Decision Making Chest x-rays unremarkable. Patient's influenza B-positive. Patient advise continue Tylenol Motrin. Return parameters were discussed. - Lab Data Lab Results 07/14/19 Range/Units 22:00 Influenza Type A RNA Not Detected (Not Detectd) Influenza Type B (PCR) Detected H (Not Detectd) Disposition Clinical Impression: Influenza B Disposition: HOME SELF-CARE Condition: Stable Instructions (If sedation given, give patient instructions): Influenza (ED) Additional Instructions: Please return to the Emergency Department if symptoms worsen or any other concerns. Is patient prescribed a controlled substance at d/c from ED?: No Referrals: None,Stated [Primary Care Provider] - 1-2 days Time of Disposition: 22:39
--- NOTE | 2019-07-14 22:30 | XR ---
EXAMINATION TYPE: XR chest 2V DATE OF EXAM: 07/14/2019 COMPARISON: 03/02/2017 HISTORY: Cough and fever TECHNIQUE: FINDINGS: Heart and mediastinum are normal. Lungs are clear. Diaphragm is normal. Bony thorax appears normal. IMPRESSION: Normal chest. No change.
[2019-07-14 23:05] VITALS: BP 110/62; PULSE 89; RESP 19; TEMP 101
== END 2019-07-14 23:05 | disposition home or self-care (01) ==
LOC: EC 21:57
DX: J10.1 Influenza due to other identified influenza virus with other respiratory manifestations (principal); F17.200 Nicotine dependence, unspecified, uncomplicated; Z88.1 Allergy status to other antibiotic agents; Z86.14 Personal history of Methicillin resistant Staphylococcus aureus infection
CPT/HCPCS: 87502; 71046; 99284; 96372; J1885